=== PATIENT | female | born 1960 | race African-American/Black ===

== ENCOUNTER 2017-09-27 17:42 | Emergency (ER) | payer SELFPAY ==
[2017-09-27 17:51] VITALS: BP 121/68
[2017-09-27] MEDS ORDERED: GUAIFENESIN/CODEINE PHOS 100-10 MG/ 5 ML UDC PO ONE (18:02)
[2017-09-27] MEDS ORDERED: IPRATROPIUM/ALBUTEROL 0.5-2.5 MG/3 ML AMPUL NEB ONE (18:02)
[2017-09-27] MEDS ORDERED: PREDNISONE 20 MG TABLET PO ONE (18:02)
--- NOTE | 2017-09-27 18:05 | ER Document Report ---
ED Respiratory Problem - General Chief Complaint: Breathing Difficulty Stated Complaint: DIFFICULTY BREATHING/CHEST PAIN Time Seen by Provider: 09/27/17 18:02 Mode of Arrival: Ambulatory Information source: Patient Notes: Chief complaint: Wheezing History of complain:( obtained from----patient) 57 years old female with a history of asthma presents today with cough and wheezing since this morning. She is taking albuterol and Symbicort, without much improvement. Had some runny nose sinus congestion. No fever chills. Denies any chest pain. Denies any other constitutional symptoms. Onset: As above Duration: Since this morning Severity: Mild to moderate Quality: Wheezing Context: Asthma Exacerbating factor and relieving factors: Exacerbation REVIEW OF SYSTEMS: CONSTITUTIONAL : Denies fever, chills, or sweats. Denies recent illness. EENT: Denies eye, ear, throat, or mouth pain or symptoms. Denies nasal or sinus congestion or discharge. Denies throat, tongue, or mouth swelling or difficulty swallowing. CARDIOVASCULAR: Denies chest pain. Denies palpitations or racing or irregular heart beat. Denies ankle edema. RESPIRATORY: Denies cough, cold, or chest congestion. Denies shortness of breath, difficulty breathing, or wheezing. GASTROINTESTINAL: Denies distention. Denies nausea, vomiting, or diarrhea. Denies blood in vomitus, stools, or per rectum. Denies black, tarry stools. Denies constipation. GENITOURINARY: Denies difficulty urinating, painful urination, burning, frequency, blood in urine, or discharge. FEMALE GENITOURINARY: Denies vaginal bleeding, heavy or abnormal periods, irregular periods. Denies vaginal discharge or odor. MUSCULOSKELETAL: Denies back or neck pain or stiffness. Denies joint pain or swelling. SKIN: Denies rash, lesions or sores. HEMATOLOGIC : Denies easy bruising or bleeding. LYMPHATIC: Denies swollen, enlarged glands. NEUROLOGICAL: Denies confusion or altered mental status. Denies passing out or loss of consciousness. Denies dizziness or lightheadedness. Denies headache. Denies weakness or paralysis or loss of use of either side. Denies problems with gait or speech. Denies sensory loss, numbness, or tingling. Denies seizures. PSYCHIATRIC: Denies anxiety or stress. Denies depression, suicidal ideation, or homicidal ideation. ALL OTHER SYSTEMS REVIEWED AND NEGATIVE. PHYSICAL EXAMINATION: GENERAL: Well-appearing, well-nourished and in no acute distress. HEAD: Atraumatic, normocephalic. EYES: Pupils equal round and reactive to light, extraocular movements intact, conjunctiva are normal. ENT: Nares patent, oropharynx clear without exudates. Moist mucous membranes. NECK: Normal range of motion, supple without lymphadenopathy LUNGS: Breath sounds clear to auscultation bilaterally and equal. No wheezes rales or rhonchi. HEART: Regular rate and rhythm without murmurs ABDOMEN: Soft, nontender, nondistended abdomen. No guarding, no rebound. No masses appreciated. Examination of genitals-deferred Musculoskeletal: Normal range of motion, no pitting or edema. No cyanosis. NEUROLOGICAL: Cranial nerves grossly intact. Normal speech, normal gait. Normal sensory, motor exams PSYCH: Normal mood, normal affect. SKIN: Warm, Dry, normal turgor, no rashes or lesions noted. Dictation was performed using [employer] voice recognition software TRAVEL OUTSIDE OF THE [place] IN LAST 30 DAYS: No - HPI Notes: Dictated - Related Data Allergies/Adverse Reactions: No Known Drug Allergies Allergy (Verified 09/27/17 17:44) Past Medical History - General Information source: Patient - Social History Smoking Status: Never Smoker Chew tobacco use (# tins/day): No Frequency of alcohol use: None Drug Abuse: None Lives with: Family Family History: Reviewed & Not Pertinent Patient has suicidal ideation: No Patient has homicidal ideation: No Pulmonary Medical History: Reports: Hx Asthma Renal/ Medical History: Denies: Hx Peritoneal Dialysis Review of Systems - Review of Systems Notes: Dictated Physical Exam - Vital signs Vitals: Pulse Resp BP Pulse Ox 73 32 H 121/68 98 09/27/17 17:48 09/27/17 17:48 09/27/17 17:48 09/27/17 17:48 - Notes Notes: Dictated Course - Re-evaluation Re-evalutation: 09/27/17 18:56 Cough has subsided, wheezing improved after the breathing treatment. - Vital Signs Vital signs: Temp Pulse Resp BP Pulse Ox 73 32 H 121/68 98 09/27/17 17:48 09/27/17 17:48 09/27/17 17:48 09/27/17 17:48 Discharge - Discharge Clinical Impression: Asthma exacerbation Qualifiers: Asthma severity: moderate Asthma persistence: unspecified Qualified Code(s): J45.901 - Unspecified asthma with (acute) exacerbation Condition: Fair Disposition: HOME, SELF-CARE Instructions: Asthma ([facility]) Prescriptions: Guaifenesin/Codeine Phos [Robitussin-AC Syrup 59 ml] 10 ml PO QIDP PRN #120 ml PRN Reason: Ipratropium/Albuterol Sulfate [Combivent Inhaler] 14.7 gm IH QID #1 aer.w.adap Prednisone [Sterapred] 5 mg PO ASDIR #1 tab.ds.pk Referrals: EMILEE HENDRIX MD [Primary Care Provider] - Follow up as needed
== END 2017-09-27 19:03 | disposition home or self-care (01) ==
LOC: ER 17:42
DX: J45.901 Unspecified asthma with (acute) exacerbation (principal); R07.9 Chest pain, unspecified
CPT/HCPCS: 94640; 99284; J7512; J7620

== ENCOUNTER 2017-11-01 16:44 | Emergency (ER) | payer SELFPAY ==
--- NOTE | 2017-11-01 18:18 | ER Document Report ---
HPI - HPI Pain Level: 5 Notes: Patient is a 57-year-old female who presents to the ED complaining of ongoing pain and tingling to her right hand and weakness to the hand since August. Patient states that she has been on naproxen intermittently with minimal relief. She has been wearing a wrist splint that she picked up over-the- counter as well. Patient states that using her hand makes her symptoms worse. She denies any injury. Denies any drug allergies or IV drug use. Patient was evaluated in the past, but has not followed up with any specialist thereafter. Denies any significant past medical history aside from asthma. Denies any headache, fever, URI, sore throat, chest pain, palpitations, syncope, cough, shortness of breath, wheeze, dyspnea, abdominal pain, nausea/vomiting/diarrhea, urinary retention, dysuria, hematuria, muscle paralysis, or rash. - ROS Systems Reviewed and Negative: Yes All other systems reviewed and negative Past Medical History - Social History Smoking Status: Never Smoker Family History: Reviewed & Not Pertinent Pulmonary Medical History: Reports: Hx Asthma Renal/ Medical History: Denies: Hx Peritoneal Dialysis Vertical Provider Document - CONSTITUTIONAL Agree With Documented VS: Yes Notes: PHYSICAL EXAMINATION: GENERAL: Well-appearing, well-nourished and in no acute distress. LUNGS: Breath sounds clear to auscultation bilaterally and equal. No wheezes rales or rhonchi. HEART: Regular rate and rhythm without murmurs, rubs, gallops. Musculoskeletal: Rt hand/wrist: FROM to passive/active. 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 + tinel/phalen at the wrist, correlates with sx's described. No bony tenderness. Guera negative. N/V intact distal otherwise. No deformity, erythema, ecchymosis. Extremities: No cyanosis, clubbing, or edema b/l. Peripheral pulses 2+. Capillary refill less than 3 seconds. NEUROLOGICAL: Normal speech, normal gait. see above PSYCH: Normal mood, normal affect. SKIN: Warm, Dry, normal turgor, no rashes or lesions noted. - INFECTION CONTROL TRAVEL OUTSIDE OF THE [place] IN LAST 30 DAYS: No Course - Re-evaluation Re-evalutation: 11/01/17 18:18 Patient is an afebrile, well-hydrated, 57-year-old female who presents to the ED with right hand/wrist pain, suspect carpal tunnel syndrome. Vitals are acceptable without significant tachycardia, tachypnea, or hypoxia. PE is otherwise unremarkable for any neurovascular compromise, obvious tendon/ ligament rupture, obvious fracture/dislocation, septic joint. No labs or imaging warranted at this time based on H&P. Patient's symptoms are reproducible by Tinel and Phalen of the right wrist/hand. I will send her home with a steroid taper as well as Voltaren gel. Should he has a cockup wrist splint. Recommend consult with orthopedics/P.T. for further evaluation and management. Recheck with your PCM in 3-5 days. Return to the ED with any worsening/concerning symptoms otherwise as reviewed in discharge. Patient is in agreement. - Vital Signs Vital signs: Temp Pulse Resp BP Pulse Ox 98.3 F 81 16 120/66 97 11/01/17 16:53 11/01/17 16:53 11/01/17 16:53 11/01/17 16:53 11/01/17 16:53 Discharge - Discharge Clinical Impression: Right hand pain Condition: Stable Disposition: HOME, SELF-CARE Instructions: Carpal Tunnel Syndrome ([facility]) Additional Instructions: Rest, Ice, Compression, Elevation Tylenol/ibuprofen as needed Light stretches daily Strength exercises as able Moist heat and massage may help F/u with your PCP in 3-5 days for a recheck Call orthopedics to schedule an appointment for further evaluation and management Return to the ED with any worsening symptoms and/or development of fever, headache, chest pain, palpitations, syncope, shortness of breath, trouble breathing, abdominal pain, n/v/d, muscle weakness/paralysis, numbness/tingling, swelling, redness, or other worsening symptoms that are concerning to you. Prescriptions: Diclofenac Sodium [Voltaren] 4 gm TP QID PRN #100 gel..gm. PRN Reason: Prednisone 20 mg PO ASDIR #18 tablet Referrals: EMILEE HENDRIX MD [COMMUNITY BASED STAFF] - Follow up as needed [facility] [Provider Group] - Follow up in 1 week
[2017-11-01 18:55] VITALS: BP 125/76
== END 2017-11-01 18:55 | disposition home or self-care (01) ==
LOC: ER 16:44
DX: M79.641 Pain in right hand (principal); R20.0 Anesthesia of skin; R53.1 Weakness; J45.909 Unspecified asthma, uncomplicated
CPT/HCPCS: 99283

== ENCOUNTER → 2018-05-09 | Outpatient (CLI) | payer OTHER ==
[~2018-05-09] MED LIST: ALBUTEROL SULFATE 0.083% NEB 2.5 MG/3 ML AMPUL NEB ONE
--- NOTE | 2018-05-09 15:44 | Pulmonary Function Test ---
Pulmonary Function Test Date of Procedure:: 05/09/18 INDICATION:: Asthma Referring Provider: Dr.Frank Tijerina Medical Scribe: Lenora Sparks POLITICAL ANTHROPOLOGIST, [employer]YWALL WORKER - Report Spirometry: FVC 1.98 L 70% postbronchodilator 1.97 L 70% FEV1 1.54 L 67% postbronchodilator 1.54 L 67% FEV1/FVC % 78 postbronchodilator 78 predicted 84 FEF 25-75% 1.43 L 56% postbronchodilator 1.52 L 60% Impression: Mild obstructive ventilatory defect with insignificant response to bronchodilator therapy this in and of itself does not preclude a clinical trial of bronchodilator therapy
== END ==
LOC: RT 12:43
DX: J45.909 Unspecified asthma, uncomplicated (principal)
CPT/HCPCS: 94060

== ENCOUNTER → 2018-05-30 | Outpatient (CLI) | payer OTHER ==
--- NOTE | 2018-05-30 15:32 | RADIOLOGY REPORT (SQ) ---
EXAM DESCRIPTION: WRIST RIGHT 2 VIEWS COMPLETED DATE/TIME: 05/30/2018 1:57 pm REASON FOR STUDY: PAIN IN RIGHT WRIST M25.531 PAIN IN RIGHT WRIST COMPARISON: None. NUMBER OF VIEWS: Two views. TECHNIQUE: AP and lateral radiographic images acquired of the right wrist. LIMITATIONS: None. FINDINGS: MINERALIZATION: Normal. BONES: No acute fracture or dislocation. No worrisome bone lesions. Normal alignment. SOFT TISSUES: No soft tissue swelling. No foreign body. OTHER: No other significant finding. IMPRESSION: NEGATIVE STUDY OF THE RIGHT WRIST. NO RADIOGRAPHIC EVIDENCE OF ACUTE INJURY. TECHNICAL DOCUMENTATION: JOB ID: [id number] [employer]- All Rights Reserved Reading location - IP/workstation name: [email or web address]
== END ==
LOC: CCC 13:47
DX: M25.531 Pain in right wrist (principal)

== ENCOUNTER → 2018-07-12 | Outpatient (CLI) | payer OTHER ==
--- NOTE | 2018-07-12 16:35 | RADIOLOGY REPORT (SQ) ---
EXAM DESCRIPTION: MRI HEAD COMBO COMPLETED DATE/TIME: 07/12/2018 4:25 pm REASON FOR STUDY: R25.8 OTHER ABNORMAL INVOLUNTARY MOVEMENTS R25.8 OTHER ABNORMAL INVOLUNTARY MOVEM ENTS COMPARISON: None. TECHNIQUE: Multiplanar imaging includes noncontrasted T1, T2, FLAIR, diffusion with ADC map and post gadolinium contrast T1 sequences. Images stored on PACS. CONTRAST TYPE AND DOSE: 15 mL Dotarem. RENAL FUNCTION: Not indicated. ACR Type II contrast agent associated with few, if any, unconfounded cases of NSF LIMITATIONS: None. FINDINGS: ANATOMY: No anomalies. Normal vascular flow voids. Pituitary fossa normal. CSF SPACES: Normal in size and contour. No hemorrhage. CEREBRUM: Sulci and gyri normal in size and contour. Normal white matter signal on FLAIR imaging. No evidence of hemorrhage, mass, or extraaxial fluid collection. No abnormal enhancement post contrast. POSTERIOR FOSSA: No signal alteration. No hemorrhage. No edema, masses, or mass effect. Internal chris tory canals, cerebellopontine angles, mastoids normal. No enhancing lesions. No abnormal enhancement post contrast. DIFFUSION IMAGING: Negative for acute or subacute infarction. ORBITS: No masses. Globes normal. OTHER: No other significant finding. IMPRESSION: Normal brain. EVIDENCE OF ACUTE STROKE: NO. TECHNICAL DOCUMENTATION: JOB ID: [id number] [employer]- All Rights Reserved Reading location - IP/workstation name: [email or web address]
== END ==
LOC: RAD 14:56
DX: R25.8 Other abnormal involuntary movements (principal)
CPT/HCPCS: 82565; 70553; A9576